=== PATIENT | male | born 2000 | race Two or more races ===

== ENCOUNTER 2022-05-14 04:36 | Emergency (ER) | payer OTHER ==
[~2022-05-14] VITALS: Ht 182.9 cm; Wt 90.7 kg
[2022-05-14 07:30] VITALS: BP 124/73
== END 2022-05-14 07:37 | disposition home or self-care (01) ==
LOC: ER 04:36
DX: S60.512A Abrasion of left hand, initial encounter (principal); S80.812A Abrasion, left lower leg, initial encounter; V89.2XXA Person injured in unspecified motor-vehicle accident, traffic, initial encounter; Y93.89 Activity, other specified; Y92.89 Other specified places as the place of occurrence of the external cause; Y99.8 Other external cause status
CPT/HCPCS: 73120; 73590